=== PATIENT | male | born 1975 | race Caucasian/White ===

== ENCOUNTER → 2018-09-29 | Outpatient (CLI) | payer BC ==
--- NOTE | 2018-10-02 17:55 | SLEEPHOME ---
DATE OF PROCEDURE: 09/29/2018 ORDERED BY: MARIELLE Parikh Diagnostic home sleep testing was performed due to concern for the obstructive sleep apnea syndrome. For testing a nocturnal T3 respiratory monitoring device was used. Continuous record was made of pulse, oxygen saturation, airflow, chest, abdominal strain and body position. 8 hours and 41 minutes of data were reviewed. There were 6 hours and 59 minutes marked as time in bed. During the interval marked time in bed, there were 40 respiratory events identified of 10 seconds in duration or greater for a respiratory event index of 5.7. The events were primarily obstructive and associated with the supine posture. Baseline pulse rate 84 beats per minute, pulse rate ranged 62-113. Baseline saturation 92%. Saturations fell as low as 83% and testing was performed in both the supine and nonsupine positions. IMPRESSION: Abnormal home sleep testing with repetitive respiratory events and oxygen desaturations to 83% with a respiratory event index of 5.7 is consistent with the obstructive sleep apnea syndrome. RECOMMENDATIONS: As the events were associated primarily with the supine posture, sleep position retraining for avoidance of the supine posture could be considered. Should the patient's symptoms persist, referral for a formal sleep evaluation would be recommended.
== END ==
LOC: M SLEEP HO 09:23
PROVIDERS: ATTEND Nurse Practitioner Family
DX: G47.10 Hypersomnia, unspecified (principal); R06.83 Snoring